=== PATIENT | male | born 2000 | race African-American/Black ===

== ENCOUNTER 2019-06-24 19:05 | Emergency (ER) | payer OTHER ==
[~2019-06-24] VITALS: Ht 172.7 cm; Wt 69.1 kg
[2019-06-24 21:35] LABS: CHLAMYDIA DNA AMPLIFICATION POSITIVE (NEGATIVE); GC DNA AMPLIFICATION NEGATIVE (NEGATIVE)
[2019-06-24] MEDS ORDERED: LIDOCAINE 1% SDV 5 ML VIAL DILUENT ONE (21:45)
[2019-06-24] MEDS ORDERED: cefTRIAXone SOD 250 MG VIAL (J0696) IM ONE (21:45)
[2019-06-24] MEDS ORDERED: AZITHROMYCIN 250 MG TAB PO ONE (21:45)
[2019-06-24] MEDS ORDERED: MACR100C43 PO (22:06)
[2019-06-24 22:14] VITALS: BP 120/79
== END 2019-06-24 22:13 | disposition home or self-care (01) ==
LOC: M ED 19:05
DX: Z20.2 Contact with and (suspected) exposure to infections with a predominantly sexual mode of transmission (principal); N39.0 Urinary tract infection, site not specified
CPT/HCPCS: 81001; 87086; 87491; 87591; 96372; 99284; J0696

== ENCOUNTER 2020-07-10 18:22 | Emergency (ER) | payer OTHER ==
[~2020-07-10] VITALS: Ht 172.7 cm; Wt 74.0 kg
[~2020-07-10 18:22] MED LIST: MACR100C43 PO
[2020-07-10] MEDS ORDERED: DOXY100C37 PO (19:04)
[2020-07-10] MEDS ORDERED: LIDOCAINE 1% SDV 5ML VIAL DILUENT ONE (19:15)
[2020-07-10] MEDS ORDERED: cefTRIAXone SOD 250MG VIAL (J0696 PER 250MG) IM ONE (19:15)
[2020-07-10 19:26] VITALS: BP 107/66
[2020-07-10 20:38] LABS: CHLAMYDIA DNA AMPLIFICATION NEGATIVE (NEGATIVE); GC DNA AMPLIFICATION NEGATIVE (NEGATIVE)
== END 2020-07-10 20:02 | disposition home or self-care (01) ==
LOC: M ED 18:22
DX: N34.1 Nonspecific urethritis (principal); Z20.2 Contact with and (suspected) exposure to infections with a predominantly sexual mode of transmission
CPT/HCPCS: 81001; 87661; 96372; 99283; J0696

== ENCOUNTER 2020-09-20 17:46 | Emergency (ER) | payer OTHER ==
[~2020-09-20] VITALS: Ht 172.7 cm; Wt 74.9 kg
[~2020-09-20 17:46] MED LIST changes: +DOXY100C37 PO
[2020-09-20 17:47] VITALS: BP 113/77
[2020-09-20] MEDS ORDERED: PYRI1TAB5 PO (19:48)
[2020-09-20 20:13] LABS: CHLAMYDIA DNA AMPLIFICATION NEGATIVE (NEGATIVE); GC DNA AMPLIFICATION NEGATIVE (NEGATIVE)
== END 2020-09-20 20:09 | disposition home or self-care (01) ==
LOC: M ED 17:46
DX: R30.0 Dysuria (principal); R35.0 Frequency of micturition; R39.15 Urgency of urination

== ENCOUNTER 2021-03-07 06:41 | Emergency (ER) | payer OTHER ==
[~2021-03-07] VITALS: Ht 172.7 cm; Wt 76.6 kg
[~2021-03-07 06:41] MED LIST changes: -DOXY100C37 PO; +DOXY1CAP62 PO; +PYRI1TAB5 PO
[2021-03-07 11:27] LABS: APPEARANCE, URINE CLEAR (CLEAR); BACTERIA, URINE AUTO NEGATIVE (NEGATIVE); BILIRUBIN, URINE AUTO NEGATIVE (NEGATIVE); BLOOD, URINE BLOOD NEGATIVE (NEGATIVE); COLOR, URINE STRAW (YELLOW); GLUCOSE, URINE (UA) AUTO NEGATIVE (NEGATIVE); KETONE, URINE AUTO NEGATIVE (NEGATIVE); LEUKOCYTE ESTERASE, URINE AUTO NEGATIVE (NEGATIVE); NITRITE, URINE AUTO NEGATIVE (NEGATIVE); PROTEIN, URINE AUTO NEGATIVE (NEGATIVE); RBC, URINE AUTO 1 /HPF (0-3); SPECIFIC GRAVITY URINE AUTO 1.011 (1.002-1.035); SQUAMOUS EPITHELIAL CELL UR AU 0 /HPF (0-6); UROBILINOGEN, URINE AUTO 0.2 mg/dL (0.0-2.0); WBC, URINE AUTO 1 /HPF (0-3)
[2021-03-07] MEDS ORDERED: VALA1TAB5 PO (12:05)
[2021-03-07 12:13] VITALS: BP 116/60
[2021-03-07 13:05] LABS: GC DNA AMPLIFICATION NEGATIVE (NEGATIVE)
== END 2021-03-07 12:14 | disposition home or self-care (01) ==
LOC: M ED 06:41
DX: A60.01 Herpesviral infection of penis (principal)